=== PATIENT | male | born 1960 | race Hispanic/Latino ===

== ENCOUNTER → 2021-03-21 | Outpatient (CLI) | payer BC, OTHER | END | disposition home or self-care (01) | LOC: RAH 09:47 | PROVIDERS: ATTEND Family Medicine | DX: R59.0 Localized enlarged lymph nodes (principal); E07.89 Other specified disorders of thyroid; E04.1 Nontoxic single thyroid nodule | CPT/HCPCS: 76536 ==

== ENCOUNTER 2021-08-11 09:12 | Day surgery (SDC) | payer BC ==
[2021-08-10 11:59] VITALS: BP 123/74
[2021-08-11] VITALS (15 sets, daily range): BP systolic 128–155; BP diastolic 64–91
[~2021-08-11] VITALS: Ht 175.3 cm; Wt 116.6 kg
[~2021-08-11 09:12] MED LIST: ATEN50TA PO
[2021-08-11] MEDS ORDERED: LACTATED RINGERS 1000ML 1,000 ML IV ONE (09:15)
[2021-08-11] MEDS ORDERED: LIDOCAINE PF 100MG/5ML (2%) SYRINGE 5ML ONE ×2 (11:02→13:49)
[2021-08-11] MEDS ORDERED: PROPOFOL 10 MG/ML 20ML VIAL IV ONE (11:02)
[2021-08-11] MEDS ORDERED: ROCURONIUM 10MG/1ML SYR 10 MG/ML ML ONE ×2 (11:02→13:07)
[2021-08-11] MEDS ORDERED: SUCCINYLCHOLINE 200MG/10ML SYR ONE (11:02)
[2021-08-11] MEDS ORDERED: FENTANYL CITRATE PF 50 MCG/1 ML 2ML VIAL ONE ×2 (11:02→13:08)
[2021-08-11] MEDS ORDERED: LIDOCAINE 1%-EPI 1:100,000 20 ML VIAL IJ ONE (11:17)
[2021-08-11 11:31] LABS: ALBUMIN 3.7 g/dL (3.5-5.0); BILIRUBIN,TOTAL 0.5 mg/dL (0.2-1.0); CREATININE 1.1 mg/dL (0.5-1.5); POTASSIUM 4.4 mmol/L (3.5-5.1); TOTAL PROTEIN, SERUM 7.1 g/dL (6.0-8.3)
[2021-08-11] MEDS ORDERED: MIDAZOLAM HCL 1 MG/ML 2ML VIAL ONE (11:43)
[2021-08-11] MEDS ORDERED: EPINEPHRINE 1 MG/ML 30ML VIAL IJ ONE (12:00)
[2021-08-11] MEDS ORDERED: CEFAZOLIN SODIUM 1 GM VIAL ONE (13:17)
[2021-08-11] MEDS ORDERED: NEOSTIGMINE 5MG/5ML SYR IV ONE (13:37)
[2021-08-11] MEDS ORDERED: GLYCOPYRROLATE 1 MG/5 ML SYRINGE ONE (13:37)
[2021-08-11] MEDS ORDERED: BACITRACIN 28.4 GM OINT TP ONE (13:45)
[2021-08-11] MEDS ORDERED: ONDANSETRON 4MG INJ ONE (14:36)
== END 2021-08-11 15:40 | disposition home or self-care (01) ==
LOC: DAH 09:12
PROVIDERS: ATTEND Otolaryngology
DX: D34 Benign neoplasm of thyroid gland (principal); I10 Essential (primary) hypertension; K21.9 Gastro-esophageal reflux disease without esophagitis; E11.9 Type 2 diabetes mellitus without complications; Z79.899 Other long term (current) drug therapy
CPT/HCPCS: 36415; 60220; 80053; 82948; 87635; A4215; A4221; A4222; A4223; A4649; A4663; A4930 ×2; C1713 ×2; C9803; J0171; J0330; J0690; J2001 ×2; J2250; J2405; J2704; J2710; J3010 ×2; J3490 ×2; J7120